=== PATIENT | male | born 2000 | race Caucasian/White ===

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

== ENCOUNTER 2022-05-08 22:15 | Emergency (ER) | payer OTHER, SELFPAY ==
[2022-05-08] VITALS (11 sets, daily range): BP systolic 118–156; BP diastolic 78–99; PULSE 68–110; RESP 14–21; TEMP 36.4–36.8; O2SAT 100
--- NOTE | 2022-05-08 22:42 | ECG_ITS ---
Measurements Intervals [place] Rate: 96 P: 64 DE: 138 QRS: 62 QRSD: 96 T: 20 QT: 319 QTc: 404 Interpretive Statements SINUS RHYTHM BASELINE ARTIFACT- V4 NORMAL ECG NO PREVIOUS ECG AVAILABLE FOR COMPARISON Electronically Signed On 05-09-2022 6:47:25 CDT by Wilbert Arriaga D.O.
--- NOTE | 2022-05-08 22:50 | PC.NURSE ---
Pt had moment with severe involuntary muscle movements - tensed to the right side. Did not respond to initial sternal rub. MD at bedside, patient came responding appropriately. Medications administered, second IV access obtained. 2308: Pt oriented at this time. Arousable to voice. No distress noted. Continuing on monitoring tech. Denies pain at this time.
[2022-05-08] MEDS: SODIUM CHLORIDE 0.9% IV 2,000 ML 999 ML IV CONT (22:52)
[2022-05-08] MEDS: diphenhydrAMINE HCl INJ 50 MG/ML VIAL 25 MG IV PUSH (22:53)
[2022-05-08 22:54] LABS: Basophils Percent Auto 0.2 % (0.2-1.2); Eosinophils Percent Auto 0.7 % (0-4.4); Hematocrit 42.2 % (42.0-52.0); Hemoglobin 14.1 g/dL (14.0-18.0); Immature Granulocyte Absolute 0.01 K/mm3 (0.00-0.031); Immature Granulocyte Percent A 0.2 % (0-0.5); Lymphocytes Absolute Auto 1.77 K/mm3 (0.9-3.2); Lymphocytes Percent Auto 30.6 % (18.3-44.2); Mean Corpuscular HGB Conc 33.4 g/dl (32-36); Mean Corpuscular Hemoglobin 30.6 pg (26-34); Mean Corpuscular Volume 91.5 fl (80-100); Mean Platelet Volume 10.1 fl (7.4-10.4); Monocytes Absolute Auto 0.3 K/mm3 (0.1-0.6); Monocytes Percent Auto 5.5 % (2.6-8.5); Neutrophils Absolute Auto 3.6 K/mm3 (1.3-6.7); Neutrophils Percent Auto 62.8 % (45.5-73.1); Platelet Count Result 173 k/mm3 (150-375); Red Blood Count 4.61 M/mm3 (4.6-6.20); Red Cell Distribution Width 12.3 % (11.5-14.5); White Blood Count 5.8 K/mm3 (4.5-10.0)
[2022-05-08] MEDS: BENZTROPINE MESYLATE INJ 1 MG/ML AMPUL IM (22:57)
[2022-05-08 23:08] LABS: Alanine Aminotransferase 16 U/L (6-50); Albumin Level 4.5 g/dL (3.7-5.6); Alkaline Phosphatase 76 U/L (58-237); Anion Gap 3 mmol/L (8-16); Aspartate Amino Transferase 22 U/L (17-59); Bilirubin,Total 0.4 mg/dL (0.2-1.3); Blood Urea Nitrogen 13 mg/dL (8-21); Calcium 9.1 mg/dL (8.9-10.7); Carbon Dioxide 32 mmol/L (22-30); Chloride 106 mmol/L (98-107); Estimated CRCL calculation 138 ml/min; Estimated Glomerular Filt Rate > 60; Glucose 86 mg/dL (65-110); Lipase 33 U/L (23-300); Magnesium 1.9 mg/dL (1.6-2.3); Potassium 4.4 mmol/L (3.4-5.0); Sodium 141 mmol/L (134-143)
[2022-05-08 23:10] LABS: INR 1.1; Partial Thromboplastin Time 25.4 SECONDS (22.3-36.8); Prothrombin Time 14.1 Seconds (11.1-14.7)
--- NOTE | 2022-05-08 23:18 | PC.NURSE ---
Spoke with poison control, [place]. Watch: Tachycardia, hypotension, dystonia, prolonged QT interval, muscle rigidity. Extended release has peak at 24 hours. Pt originally told this RN that he took medication one. Standard of care - treat symptomatically. May consider benzodiazepines CASE #: [id number] Will fax information to John.
--- NOTE | 2022-05-08 23:23 | PC.NURSE ---
Per Poison control, may want to run a CK for possible rhabdo and monitor temperature for hyperthermia.
--- NOTE | 2022-05-08 23:29 | ED.GENADULT ---
HPI - General Adult General Chief complaint: Overdose Stated complaint: intentional od to get high Time Seen by Provider: 05/08/22 22:39 History of Present Illness HPI narrative: 21-year-old male with behavior and psychiatric issues presenting ED with difficulty walking and loss of tongue control. Patient took 12 Invega approximately 24 hours before arrival. He was sitting at dinner with his mother when he started to lose control his body with random movements. He says that his neck was stiff. When he arrived here his tongue was moving on its own. Patient has some history of psychiatric illness as well as chill time. Patient said he took medication to get high. Denies homicidal suicidal ideations he denies auditory or visual hallucinations. He denies any other physical complaints at this time. Related Data Allergies Allergy/AdvReac Type Severity Reaction Status Date / Time No Known Drug Allergies Allergy Other Verified 05/08/22 22:37 [facility] Past Medical History Medical History (Updated 05/09/22 @ 03:05 by Huseyin Sales MD) Patient denies significant medical history Psychiatric illness Social History Social History Smoking status: Never smoker Substance use type: does not use Exam Narrative: APPEARANCE: patient is holding his mouth open with his tongue sticking out Head: Facial tattoo under his left eye EYES: EOMI, NOSE: Atraumatic NECK: Trachea midline RESPIRATORY: No increased rate of breathing clear to auscultation CARDIOVASCULAR: RRR, ABDOMINAL: Non-distended MUSCULOSKELETAl: No obvious deformities, no stiff muscles NEURO: Alert. Moving 4/4 extremities, no clonus SKIN:: Warm, dry. Normal color PSYCHIATRIC: Normal affect Course Vital Signs Vital signs: Vital Signs Pulse Rate 104 H 05/08/22 22:29 Respiratory Rate 18 05/08/22 22:29 Temperature 98.2 F 05/08/22 23:35 Pulse Rate 68 05/08/22 23:35 Respiratory Rate 14 05/08/22 23:35 Blood Pressure 120/78 05/08/22 23:35 Pulse Oximetry 100 05/08/22 23:35 Oxygen Delivery Room Air 05/08/22 22:30 Medical Decision Making MDM Narrative Medical decision making narrative: -Presentation: 21-year-old male presenting with loss of motor function and random movements after an Invega overdose. -DDX includes but is not limited to: Dystonic reaction, akethesias, neuroleptic malignant syndrome, serotonin syndrome -Co-morbidities complicating care: unknown psychiatric illness, possible developmental delay -Social determinants of health: patient is unemployed, lives with his mother, history of psychiatric admission and alf time -External Chart Review: none -Hx from independent Sources: mother -Discussion of Management/Consultants: poison control -Independent interpretation of studies: CBC was within normal limits. Coags were normal. Metabolic panel is within normal limits. CPK normal. Tox screen negative. Alcohol negative. Independent EKG interpretation: Rhythm [sinus], Rate [96], [place] -[normal], [place] -[normal], QRS [narrow], QTC [normal], T waves -[negative for concerning inversions], ST Segments - [Negative for concerning elevations] Final interpretations: [Normal Sinus Rhythm] Dx tests considered but not ordered: none -Procedures: -Interventions: Cogentin 1 mg IM, Benadryl 50 mg IV -Shared decision making / Disposition: patient was monitored for several hours with complete resolution of his symptoms. His presentation was consistent with parkinsonian symptoms from his Invega overdose. Patient has been instructed to not abuse his drugs. I communicated this to his mother as well. He will get discharged with a Cogentin prescription. Mother said she would come pick him up in the morning. -RX Cogentin 1 mg Vital Signs Vital Signs: Vital Signs Pulse Rate 104 H 05/08/22 22:29 Respiratory Rate 18 05/08/22 22:29 Temperature 98.2 F
[2022-05-08 23:51] LABS: Ethanol < 10 mg/dL (<10)
[2022-05-08 23:51] LABS: Lactic Acid Reflex 1.3 mmol/L (0.7-2.0)
[2022-05-09 00:01] VITALS: BP 113/73; PULSE 75; RESP 16; O2SAT 100
[2022-05-09 00:02] LABS: Amphetamine Screen Urine Negative (Negative); Barbiturate Screen Urine Negative (Negative); Benzodiazepines Screen Urine Negative (Negative); Cannabinoid Screen Urine Negative (Negative); Cocaine Screen Urine Negative (Negative); Methadone Screen Urine Negative (Negative); Opiate Screen Urine Negative (Negative); Phencyclidine Screen Urine Negative (Negative)
[2022-05-09 00:16] VITALS: BP 121/66; PULSE 74; RESP 13; O2SAT 100
[2022-05-09 00:45] LABS: Creatine Kinase 56 U/L (55-170)
[2022-05-09 00:46] VITALS: BP 116/70; PULSE 60; RESP 14; O2SAT 100
[2022-05-09 01:01] VITALS: BP 112/66; PULSE 67; RESP 12; O2SAT 100
[2022-05-09 01:31] VITALS: BP 128/70; PULSE 68; RESP 14
[2022-05-09 03:16] VITALS: BP 112/64; PULSE 51; RESP 12
== END 2022-05-09 03:32 | disposition home or self-care (01) ==
PROVIDERS: Emergency Provider Emergency Medicine
DX: G24.01 Drug induced subacute dyskinesia (principal); G24.09 Other drug induced dystonia; T43.591A Poisoning by other antipsychotics and neuroleptics, accidental (unintentional), initial encounter
CPT/HCPCS: 36415; 80053; 80307; 82550; 83605; 83690; 83735; 85025; 85610; 85730; 93005; 96361; 96372; 96374; 99284; J0515; J1200; J7030